=== PATIENT | male | born 1965 ===

== ENCOUNTER 2017-08-05 18:12 | Emergency (ER) | payer BC, OTHER ==
[2017-08-05] MEDS ORDERED: Sodium Chloride 0.9% 1,000 ML IV STA (18:49)
--- NOTE | 2017-08-05 18:58 | ED PDOC ---
HPI: Abdomen Time Seen by Provider: 08/05/17 18:37 Chief Complaint (Nursing): Abdominal Pain Chief Complaint (Provider): flank pain History Per: Patient, Family History/Exam Limitations: no limitations Onset/Duration Of Symptoms: Hrs (6), Sudden Onset Outside of [place] travel?: No Current Symptoms Are (Timing): Still Present Severity: Moderate Location Of Pain/Discomfort: Other (L flank--> LLQ) Quality Of Discomfort: Sharp Associated Symptoms: Nausea, Vomiting, Loss Of Appetite, Urinary Symptoms. denies: Back Pain Exacerbating Factors: None Alleviating Factors: None Additional Complaint(s): 51yo male c/o sudden onset left flank pain radiating to left lower abdomen with sensation of urinary frequency and hesitancy and 2 episodes vomiting. Denies hematuria, fever or prior history of simular symptoms. Past Medical History Reviewed: Historical Data, Nursing Documentation, Vital Signs Vital Signs: Last Vital Signs Temp 98.4 F 08/05/17 23:03 Pulse 70 08/05/17 23:03 Resp 17 08/05/17 23:03 BP 130/87 08/05/17 23:03 Pulse Ox 95 08/05/17 23:03 - Medical History PMH: No Chronic Diseases - Surgical History Other surgeries: varicose vein - Family History Family History: States: Unknown Family Hx - Social History Current smoker - smoking cessation education provided: No - Home Medications Home Medications: Ambulatory Orders Medication Instructions Recorded Ciprofloxacin/Ciprofloxa HCl 500 mg PO BID #14 tab 08/05/17 [Ciprofloxacin] Ibuprofen [Motrin Tab] 600 mg PO Q6 PRN #15 tab 08/05/17 Tamsulosin [Flomax] 0.4 mg PO DAILY #3 cap 08/05/17 oxyCODONE/Acetaminophen [Percocet 1 ea PO Q4 PRN #8 tab 08/05/17 5/325 mg Tab] - Allergies Allergies/Adverse Reactions: Allergies Allergy/AdvReac Type Severity Reaction Status Date / Time No Known Allergies Allergy Verified 08/05/17 18:41 Review of Systems ROS Statement: Except As Marked, All Systems Reviewed And Found Negative Constitutional: Negative for: Fever, Chills Respiratory: Negative for: Cough, Shortness of Breath Gastrointestinal: Positive for: Nausea, Vomiting, Abdominal Pain, Constipation. Negative for: Diarrhea, Melena Genitourinary Male: Positive for: Dysuria, Frequency, Other (hesitancy). Negative for: Penile Discharge Musculoskeletal: Positive for: Back Pain. Negative for: Neck Pain, Arm Pain, Leg Pain Skin: Negative for: Rash, Lesions, Jaundice Neurological: Negative for: Weakness, Numbness, Confusion, Dizziness Psych: Negative for: Suicidal ideation Physical Exam - Reviewed Nursing Documentation Reviewed: Yes Vital Signs Reviewed: Yes - Physical Exam Appears: Positive for: Well, Non-toxic, No Acute Distress Head Exam: Positive for: ATRAUMATIC, NORMAL INSPECTION, NORMOCEPHALIC Skin: Positive for: Normal Color, Warm, DRY Eye Exam: Positive for: EOMI, Normal appearance, PERRL ENT: Positive for: Normal ENT Inspection Neck: Positive for: Normal, Painless ROM Cardiovascular/Chest: Positive for: Regular Rate, Rhythm Respiratory: Positive for: CNT, Normal Breath Sounds Gastrointestinal/Abdominal: Positive for: Soft, Tenderness, Other Back: Positive for: L CVA Tenderness Extremity: Positive for: Normal ROM Neurologic/Psych: Positive for: Alert, Oriented - Laboratory Results Result Diagrams: 08/05/17 19:00 08/05/17 19:00 - ECG O2 Sat by Pulse Oximetry: 100 Medical Decision Making Medical Decision Making: workup for acute flank pain initiated r/o renal colic vs diverticulitis vs other analgesics and IVF CT: reveals 3mm stone L UVJ IVF and cipro, flomax initiated Observed in ED approx 5hrs improved pain, remains afebrile, now without any complaints of pain. labs clinically unremarkable UA +RBC neg leuk est Rx ibuprofen, percocet #8, flomax x3d and cipro (cover w Abx given stranding on CT) Followup urology or return to ER for any fever, worse pain or any concern. Disposition - Clinical Impression Clinical Impression: Nephrolithiasis, Kidney stone on left side, Abdominal discomfort - Patient ED Disposition Is Patient to be Admitted: No Counseled Patient/Family Regarding: Studies Performed, Diagnosis, Need For Followup, Rx Given - Disposition Disposition: Routine/Home Disposition Time: 23:21 Condition: STABLE Additional Instructions: Drink plenty of fluids, take medications including antibiotic as directed, return to ER for any worse or new symptoms, fever, weakness, pain or any concern. Prescriptions: Ciprofloxacin/Ciprofloxa HCl [Ciprofloxacin] 500 mg PO BID #14 tab Ibuprofen [Motrin Tab] 600 mg PO Q6 PRN #15 tab PRN Reason: Pain, Moderate (4-7) oxyCODONE/Acetaminophen [Percocet 5/325 mg Tab] 1 ea PO Q4 PRN #8 tab PRN Reason: Pain, Severe (8-10) Tamsulosin [Flomax] 0.4 mg PO DAILY #3 cap Instructions: Kidney Stones (DC) Forms: [employer] (Faroese) Print Language: BELGIAN
[2017-08-05 19:12] LABS: BASO % 0.5 % (0.0-2.0); EOS % 0.1 % (0.0-4.0); HEMOGLOBIN 15.7 g/dL (12.0-18.0); LYMPH # 1.1 K/uL (1.0-4.3); LYMPH % 11.4 % (20.0-40.0); MEAN CELL VOLUME 87.8 fl (80.0-94.0); MEAN CORPUSCULAR HEMOGLOBIN 30.4 pg (27.0-31.0); MEAN CORPUSCULAR HGB CONC 34.6 g/dL (33.0-37.0); MEAN PLATELET VOLUME 7.4 fl (7.2-11.7); MONO # 0.4 K/uL (0.0-0.8); MONO % 3.7 % (0.0-10.0); NEUT # 8.1 K/uL (1.8-7.0); NEUT % 84.3 % (50.0-75.0); RBC 5.17 Mil/uL (4.40-5.90); RED CELL DISTRIBUTION WIDTH 13.6 % (11.5-14.5); WHITE BLOOD COUNT 9.6 K/uL (4.8-10.8)
[2017-08-05 19:22] LABS: ALB/GLOB RATIO 1.3 (1.0-2.1)
[2017-08-05 19:29] LABS: ALBUMIN 4.8 g/dL (3.5-5.0); ALT/SGPT 58 U/L (21-72); AST/SGOT 33 U/L (17-59); BLOOD UREA NITROGEN 26 mg/dl (9-20); CALCIUM 10.3 mg/dL (8.4-10.2); GFR AFRICAN-AMERICAN > 60; GFR NON-AFRICAN AMERICAN > 60; LIPASE 28 U/L (23-300)
[2017-08-05 22:39] LABS: SQUAMOUS EPITHIAL < 1 /hpf (0-5); URINE BACTERIA RARE (<OCC); URINE BILIRUBIN NEGATIVE (NEGATIVE); URINE BLOOD LARGE (NEGATIVE); URINE CLARITY CLOUDY (Clear); URINE COLOR AMBER (YELLOW); URINE GLUCOSE (UA) NEG (Normal); URINE LEUKOCYTE ESTERASE NEG Leu/uL (Negative); URINE PROTEIN 100 mg/dL (NEGATIVE); WBC CLUMPS FEW /hpf
[2017-08-05 23:04] VITALS: BP 130/87; PULSE 70; RESP 17; TEMP 98.4
[2017-08-05 23:21] VITALS: O2SAT 100
--- NOTE | 2017-08-06 11:43 | CT ---
PROCEDURE: CT scan abdomen pelvis dated 08/05/2017 HISTORY: Left flank pain x 6 hours. COMPARISON: No prior study available for comparison. TECHNIQUE: Contiguous helical/transaxial sections of the abdomen and pelvis performed without oral or intravenous contrast material. Additional 2 dimensional sagittal and coronal reformats generated. Radiation dose: Total exam DLP = 642.[address] exam was performed using one or more of the following dose reduction techniques: Automated exposure control, adjustment of the mA and/or kV according to patient size, and/or use of iterative reconstruction technique. FINDINGS: LOWER THORAX: Mild bibasilar atelectasis with suspected concomitant minor scarring changes. . No effusion or basilar pneumothorax. There is CT a small hiatal hernia with wall thickening of the distal esophagus likely due to protrusion of gastric mucosa. Possibility of esophagitis not excluded. Mild cardiomegaly. No evidence of significant pericardial effusion LIVER: Liver is enlarged measuring over 20 cm in CC dimension. Moderate diffuse fatty hepatic infiltration. Small irregular calcification within the right lobe liver nonspecific. Rule out post inflammatory sequela. Rule out prior exposure to granulomatous disease process. . No gross hepatic mass lesion or significant ductal dilatation. GALLBLADDER AND BILE DUCTS: Multiple intraluminal gallbladder calculi. PANCREAS: Pancreas is atrophic and fatty replaced. No obvious pancreatic mass collection or calcification. SPLEEN: Spleen exhibits normal size and attenuation pattern without mass collection or calcification. ADRENALS: No adrenal lesions are identified. KIDNEYS AND URETERS: There is [id number] left-sided hydronephrosis secondary to a tiny approximately 3 mm UVJ calculus possibly within the intramural portion of the distal left ureter. . Punctate nonobstructing calcifications lower pole left kidney. . There also appears to be a punctate nonobstructing calcification mid to lower pole right kidney BLADDER: Urinary bladder incompletely distended which in part accounts for thick-walled appearance. Muscular hypertrophy may contribute. REPRODUCTIVE: The prostate gland measures approximately 5.4 cm in transverse dimension. APPENDIX: Normal-appearing appendix best seen on axial image number [id number]. BOWEL: Evaluation of the bowel is limited due to the lack of oral contrast material. Stomach is partially distended with food debris liquid and air. Visualized loops of small bowel exhibit normal contour and caliber. No evidence of acute mechanical small bowel obstruction. Most of the large bowel appears relatively collapsed which presumably in part accounts for slight thick-walled appearance. PERITONEUM: Unremarkable. No fluid collection. No free air. Small fat containing umbilical hernia and small fat containing bilateral inguinal hernias are present. LYMPH NODES: Few small nonspecific retroperitoneal lymph nodes are present. VASCULATURE: Unremarkable. No aortic aneurysm. BONES: Minor multilevel degenerative spondylosis of the thoracic and lumbar spine. There are no acute compression fractures. OTHER FINDINGS: None. IMPRESSION: There is a small approximately 3 mm calculus left UVJ region possibly within the intramural portion of the left distal ureter with mild to moderate left-sided hydronephrosis. . Punctate nonobstructing calcifications lower pole left kidney. . There also appears to be a punctate nonobstructing calcification mid to lower pole right kidney Hepatomegaly with moderate fatty hepatic infiltration. Hepatic calcification possibly due to old infection/inflammation; rule out prior exposure to a granulomatous disease process. Urinary bladder wall slightly thickened likely due to incomplete distention and muscular hypertrophy. Rule out cystitis. Prostatic hypertrophy likely due to BPH however correlation with PSA suggested. Cholelithiasis. Bibasilar atelectasis. Small hiatal hernia. Preliminary report provided by overnight radiology service
== END 2017-08-05 23:36 | disposition home or self-care (01) ==
LOC: H.ER 18:12
DX: N20.2 Calculus of kidney with calculus of ureter (principal); R10.9 Unspecified abdominal pain; K80.20 Calculus of gallbladder without cholecystitis without obstruction
CPT/HCPCS: 74176; 80053; 81003; 83690; 85025; 96360; 99283; J1885; J7040